=== PATIENT | female | born 1950 | race Caucasian/White ===

== ENCOUNTER → 2024-02-20 | Day surgery (SDC) | payer MEDICARE ==
[~2024-02-20] MED LIST: Propofol 200 MG/20 ML SDV ONE; fentaNYL 50 MCG/ML SDV ONE
[2024-02-20] MEDS: Sodium Chloride 0.9% 1,000 ML IV SCH (16:43)
== END ==
LOC: JP.SDS 07:43
PROVIDERS: ATTEND Surgery
DX: Z12.11 Encounter for screening for malignant neoplasm of colon (principal); Z88.2 Allergy status to sulfonamides
CPT/HCPCS: 00812; G0121; J2704; J3010; J7030